=== PATIENT | male | born 1980 | race Hispanic/Latino ===

== ENCOUNTER 2022-10-16 09:40 | Emergency (ER) | payer SELFPAY ==
[2022-10-16] MEDS ORDERED: LIDOCAINE HCL JELLY 2% 6 ML SYRINGE TOP ONE (10:03)
[2022-10-16] MEDS ORDERED: TETANUS & DIPHTHERIA TOX,ADULT 0.5 ML VIAL ONE (10:03)
--- NOTE | 2022-10-16 10:18 | EDPHYS ---
Physician Documentation [facility] Name: Parker Hughes Age: 42 yrs Sex: Male : 1980 Arrival Date: 10/16/2022 Time: 09:40 Bed 20 Private MD: ED Physician Erin Lopez HPI: 10/16 10:15 This 42 yrs old Male presents to ER via Ambulatory with complaints of Wound kb Check - head. 10:15 The patient has a laceration related to: ceiling fan hit pt in the head occurred at home, and there are no complicating factors. The injury was accidental. The laceration(s) is(are) located on the left parietal area. Onset: The symptoms/episode began/occurred just prior to arrival. Associated signs and symptoms: The patient has no apparent associated signs or symptoms. The patient has not experienced similar symptoms in the past. The patient has not recently seen a physician. {Pt states he was trying to kill a song and hit his head on the ceiling fan causing laceration. Denies LOC, dizziness, headache. Historical: - Allergies: 09:56 No Known Allergies; ph - PMHx: 09:56 None; ph - Immunization history:: Adult Immunizations unknown. - Social history:: Smoking status: Patient denies any tobacco usage or history of. ROS: 10:14 Constitutional: Negative for fever, chills, and weight loss. kb 10:14 Skin: Positive for laceration(s), of the left parietal area. 10:14 All other systems are negative. Exam: 10:14 Constitutional: This is a well developed, well nourished patient who is awake, alert, kb and in no acute distress. ENT: Moist Mucous membranes Cardiovascular: Regular rate and rhythm with a normal S1 and S2. No gallops, murmurs, or rubs. No pulse deficits. Respiratory: Respirations even and unlabored. No increased work of breathing. Talking in full sentences MS/ Extremity: Pulses equal, no cyanosis. Neurovascular intact. Full, normal range of motion. Neuro: Awake and alert, GCS 15, oriented to person, place, time, and situation. Moves all extremities. Normal gait. 10:14 Skin: injury, laceration(s), the wound is approximately 3 cm(s), of the left parietal area, that can be described as clean, no foreign body, linear, without bleeding. Vital Signs: 09:55 BP 139 / 98; Pulse 87; Resp 18; Temp 98; Pulse Ox 99% on R/A; Weight 88.45 kg; Height 5 ph ft. 10 in. ; 09:55 Body Mass Index 27.98 (88.45 kg, 177.8 cm) ph Laceration: 10:22 Wound Repair of 3cm ( 1.2in ) subcutaneous laceration to left parietal area. Linear kb shaped.. Distal neuro/vascular/tendon intact. Anesthesia: Topical anesthetic administered with 1% lidocaine. Wound prep: Extensive cleansing, Wound irrigation. Skin closed with 3 1-0 [place] using staple gun. Patient tolerated well. MDM: 09:46 Patient medically screened. kb 10:15 Data reviewed: vital signs, nurses notes. kb 10:16 Differential diagnosis: superficial laceration, tendon injury, vascular injury, head kb injury. Historians other than the Patient: Spouse/Significant Other: significant other. Counseling: I had a detailed discussion with the patient and/or guardian regarding: the historical points, exam findings, and any diagnostic results supporting the discharge/admit diagnosis, the need for outpatient follow up, a family practitioner, to return to the emergency department if symptoms worsen or persist or if there are any questions or concerns that arise at home. 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 Lot #: [id number]. } Route: IM; Site: right deltoid; 10:29 Follow up: Response: No adverse reaction kc6 10:29 Drug: [place] PO 10 mg-325 mg 1 tabs Route: PO; kc6 Disposition Summary: 10/16/22 10:18 Discharge Ordered Location: Home kb Condition: Stable kb Diagnosis - Laceration without foreign body of scalp kb Followup: kb - With: Emergency Department - When: As needed - Reason: Worsening of condition Followup: kb - With: Private Physician - When: 2 - 3 days - Reason: Recheck today's complaints, Continuance of care, Re-evaluation by your physician Discharge Instructions: - Discharge Summary Sheet kb - Laceration Care, Adult, [id number] kb - Head Injury, Adult, [id number] kb Forms: - Medication Reconciliation Form kb - Thank You Letter kb - Antibiotic Education kb - Prescription Opioid Use kb Prescriptions: - Diclofenac Sodium 75 mg Oral tablet,delayed release (DR/EC) - take 1 tablet by ORAL route 2 times per day As needed; 30 tablet; Refills: 0, kb Product Selection Permitted Signatures: Charline Llamas, PRIYA-C Fatimah Mrain, RN RN Vanessa Agrawal RN RN kc6
--- NOTE | 2022-10-16 10:18 | ER ---
Nurse's Notes [facility] Name: Parker Hughes Age: 42 yrs Sex: Male : 1980 Arrival Date: 10/16/2022 Time: 09:40 Bed 20 Private MD: Diagnosis: Laceration without foreign body of scalp Presentation: 10/16 09:55 Chief complaint: Patient states: Was trying to kill a song and hit head on ceiling ph fan, laceration to L occipital area, no LOC, minimal bleeding. Coronavirus screen: Vaccine status: Patient reports receiving the 1st dose of the Covid vaccine. Ebola Screen: No symptoms or risks identified at this time. Initial Sepsis Screen: Does the patient meet any 2 criteria? No. Patient's initial sepsis screen is negative. Does the patient have a suspected source of infection? No. Patient's initial sepsis screen is negative. Risk Assessment: Do you want to hurt yourself or someone else? Patient reports no desire to harm self or others. Onset of symptoms was October 16, 2022. 09:55 Method Of Arrival: Ambulatory 09:55 Acuity: KRYSTA 4 ph Historical: - Allergies: 09:56 No Known Allergies; ph - PMHx: 09:56 None; ph - Immunization history:: Adult Immunizations unknown. - Social history:: Smoking status: Patient denies any tobacco usage or history of. Screenin:06 [facility] ED Fall Risk Assessment (Adult) History of falling in the last 3 months, kc6 including since admission No falls in past 3 months (0 pts) Confusion or Disorientation No (0 pts) Intoxicated or Sedated No (0 pts) Impaired Gait No (0 pts) Mobility Assist Device Used No (0 pt) Altered Elimination No (0 pt) Score/Fall Risk Level 0 - 2 = Low Risk Oriented to surroundings, Maintained a safe environment, Educated pt \T\ family on fall prevention, incl call for assistance when getting out of bed, Assessed \T\ reinforced patient's understanding of fall precautions, Hourly rounding (assess needs \T\ fall precautionary measures) done. Abuse screen: Denies threats or abuse. Denies injuries from another. Nutritional screening: No deficits noted. Tuberculosis screening: No symptoms or risk factors identified. Assessment: 10:11 General: Appears in no apparent distress. comfortable, Behavior is calm, cooperative, kc6 appropriate for age. Pain: Complains of pain in scalp. Neuro: Joaquin Agitation-Sedation Scale (RASS): 0 - Alert and Calm Level of Consciousness is awake, alert, obeys commands, Oriented to person, place, time, situation, Appropriate for age. Cardiovascular: Capillary refill < 3 seconds. Respiratory: Airway is patent Trachea midline Respiratory effort is even, unlabored, Respiratory pattern is regular, symmetrical. GI: No signs and/or symptoms were reported involving the gastrointestinal system. : No signs and/or symptoms were reported regarding the genitourinary system. EENT: No signs and/or symptoms were reported regarding the EENT system. Derm: Skin is pink, warm \T\ dry. Wound noted scalp. Musculoskeletal: No signs and/or symptoms reported regarding the musculoskeletal system. Circulation, motion, and sensation intact. Capillary refill < 3 seconds, Range of motion: intact in all extremities. Vital Signs: 09:55 BP 139 / 98; Pulse 87; Resp 18; Temp 98; Pulse Ox 99% on R/A; Weight 88.45 kg; Height 5 ph ft. 10 in. ; 09:55 Body Mass Index 27.98 (88.45 kg, 177.8 cm) ph ED Course: 09:45 Patient arrived in ED. am2 09:46 Charline Llamas FNP-C is [facility]. kb 09:46 Erin Lopez MD is Attending Physician. kb 09:54 Vanessa Agrawal, LILLI is Primary Nurse. kc6 09:56 Triage completed. ph 09:57 Arm band placed on Patient placed in an exam room, on a stretcher. ph 10:06 Patient has correct armband on for positive identification. Bed in low position. Call kc6 light in reach. Side rails up X 1. Adult w/ patient. 10:30 No provider procedures requiring assistance completed. Patient did not have IV access kc6 during this emergency room visit. 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 Exp: kc6 11/05/2023. Lot #: [id number]. } Route: IM; Site: right deltoid; 10:29 Follow up: Response: No adverse reaction kc6 10:29 Drug: [place] PO 10 mg-325 mg 1 tabs Route: PO; kc6 Medication: 10:30 VIS not applicable for this client. kc6 Outcome: 10:18 Discharge ordered by . kb 10:30 Discharged to home ambulatory, with significant other. kc6 10:30 Condition: stable 10:30 Discharge instructions given to patient, Instructed on discharge instructions, follow up and referral plans. medication usage, Demonstrated understanding of instructions, follow-up care, medications, Prescriptions given X 1. 10:30 Patient left the ED. kc6 Signatures: Charline Llamas, DRILL FOREMAN-C DRILL FOREMAN-Fatimah Forbes, RN RN Jennifer Mariee Kaitlyn, RN RN kc6
[2022-10-16 10:34] VITALS: BP 139/98; TEMP 98; O2SAT 99
[2022-10-16] MEDS ORDERED: HYDROCODONE/APAP 10/325 TAB ONE (10:34)
== END 2022-10-16 10:30 | disposition home or self-care (01) ==
LOC: ER 09:40
PROC: 0HQ0XZZ Repair Scalp Skin, External Approach (ICD-10-PCS; principal; 2022-10-16)
DX: S01.01XA Laceration without foreign body of scalp, initial encounter (principal); Z23 Encounter for immunization
CPT/HCPCS: 90714

== ENCOUNTER 2022-10-26 16:14 | Emergency (ER) | payer SELFPAY ==
--- NOTE | 2022-10-26 16:45 | ER ---
Nurse's Notes [facility] Name: Parker Hughes Age: 42 yrs Sex: Male : 1980 Arrival Date: 10/26/2022 Time: 16:14 Bed IW1 Private MD: Diagnosis: Encounter for removal of sutures-removal scalp rosa elena Presentation: 10/26 16:27 Coronavirus screen: At this time, the client does not indicate any symptoms associated iw with coronavirus-19. Ebola Screen: Patient negative for fever greater than or equal to 101.5 degrees Fahrenheit, and additional compatible Ebola Virus Disease symptoms Patient denies exposure to infectious person. Patient denies travel to an Ebola-affected area in the 21 days before illness onset. No symptoms or risks identified at this time. Initial Sepsis Screen: Does the patient meet any 2 criteria? No. Patient's initial sepsis screen is negative. Does the patient have a suspected source of infection? No. Patient's initial sepsis screen is negative. 16:28 Chief complaint: Chief complaint: Patient states: needs rosa elena removed from scalp. iw 16:28 Risk Assessment: Do you want to hurt yourself or someone else? Patient reports no iw desire to harm self or others. Onset of symptoms was October 16, 2022. 16:28 Method Of Arrival: Ambulatory iw 16:28 Acuity: KRYSTA 4 iw Historical: - Allergies: 16:29 No Known Allergies; iw Vital Signs: 16:28 BP 102 / 64; Pulse 80; Resp 18; Temp 98.6; Pulse Ox 97% on R/A; iw ED Course: 16:16 Patient arrived in ED. ts1 16:23 Adrian Castillo PA is PHCP. cp 16:23 Tru Valladares DO is Attending Physician. cp 16:29 Triage completed. iw 16:29 Arm band placed on. iw 16:42 Aniyah Krause RN is Primary Nurse. iw Administered Medications: No medications were administered Outcome: 16:45 Discharge ordered by MD. cp 16:51 Patient left the ED. iw Signatures: Aniyah Krause RN RN iw Adrian Castillo PA PA cp Simpson, Tanya, PAS PAS ts1 Corrections: (The following items were deleted from the chart) 16:29 16:28 Chief complaint: iw iw 16:29 16:28 Pulse 80bpm; Resp 18bpm; Pulse Ox 97% RA; Temp 98.6F; iw iw
--- NOTE | 2022-10-26 16:45 | EDPHYS ---
Physician Documentation [facility] Name: Parker Hughes Age: 42 yrs Sex: Male : 1980 Arrival Date: 10/26/2022 Time: 16:14 Bed IW1 Private MD: ED Physician Tru Valladares HPI: 10/26 16:33 This 42 yrs old Male presents to ER via Ambulatory with complaints of Wound cp Infection. 16:33 The patient has rosa elena on the scalp. cp 16:33 Previous treatment: The patient was initially treated on October 16, 2022, the care was cp rendered at [facility], Treatment type: The patient's original treatment included rosa elena. Sutures/rosa elena progress: The patient has no c/o's. The wound is well-healing with no redness, swelling, discharge, or dehiscence reported. 16:33 Patient presents to ED for suture removal with concern for infection. Seen by pcp and cp sent to ED for evaluation. Historical: - Allergies: 16:29 No Known Allergies; iw ROS: 16:35 Constitutional: Negative for body aches, chills, fever, poor PO intake. cp 16:35 Skin: Positive for history of scalp laceration. cp 16:35 All other systems are negative. Exam: 16:40 Constitutional: The patient appears in no acute distress, alert, awake, comfortable, cp non-toxic, well developed, well nourished. 16:40 Head/face: Noted is well-healed laceration with [address], mild swelling and cp tenderness to palpation, no drainage expressed. 16:40 Eyes: Periorbital structures: appear normal, Conjunctiva: normal, no exudate, no injection, Lids and lashes: appear normal, bilaterally. 16:40 ENT: External ear(s): are unremarkable, Nose: is normal, Mouth: Lips: moist, Oral mucosa: moist, Posterior pharynx: Airway: no evidence of obstruction, patent. 16:40 Neck: ROM/movement: is normal, is supple, without pain, no range of motions limitations. 16:40 Chest/axilla: Inspection: normal. 16:40 Cardiovascular: Rate: normal. 16:40 Respiratory: the patient does not display signs of respiratory distress, Respirations: normal, no use of accessory muscles, no retractions. 16:40 Neuro: Orientation: to person, place \T\ time. Mentation: is normal, Motor: moves all fours, strength is normal, Gait: is steady, at a normal pace, without difficulty. Vital Signs: 16:28 BP 102 / 64; Pulse 80; Resp 18; Temp 98.6; Pulse Ox 97% on R/A; iw Procedures: 16:43 Suture/Staple removal: Removed 3 rosa elena, from scalp, site appears well healed, dressed cp with Neosporin, Patient tolerated well. MDM: 16:45 Patient medically screened. cp 16:45 Data reviewed: vital signs, nurses notes. cp 16:45 Counseling: I had a detailed discussion with the patient and/or guardian regarding: the cp historical points, exam findings, and any diagnostic results supporting the discharge/admit diagnosis, to return to the emergency department if symptoms worsen or persist or if there are any questions or concerns that arise at home. Response to treatment: the patient's symptoms have markedly improved after treatment, and as a result, I will discharge patient. Administered Medications: No medications were administered Disposition: 17:41 Co-signature as Attending Physician, Tru GENAO was immediately available on-site ms3 in the Emergency Department for consultation in the care of the patient. Disposition Summary: 10/26/22 16:45 Discharge Ordered Location: Home cp Problem: new cp Symptoms: have improved cp Condition: Stable cp Diagnosis - Encounter for removal of sutures - removal scalp rosa elena cp Followup: cp - With: Emergency Department - When: As needed - Reason: Worsening of condition Discharge Instructions: - Discharge Summary Sheet cp - Suture Removal, Care After cp Forms: - Medication Reconciliation Form cp - Thank You Letter cp - Antibiotic Education cp - Prescription Opioid Use cp Prescriptions: - Cephalexin 500 mg Oral Capsule - take 1 capsule by ORAL route every 8 hours for 10 days; 30 capsule; Refills: 0, cp Product Selection Permitted Signatures: Aniyah Krause RN RN iw Adrian Castillo PA PA cp Sims, Marcus, DO DO ms3 Corrections: (The following items were deleted from the chart) 10/27 14:16 14:14 Patient presents to ED for suture removal with concern for infection. Seen by . cpcp
[2022-10-26 16:57] VITALS: BP 102/64; TEMP 98.6; O2SAT 97
== END 2022-10-26 16:51 | disposition home or self-care (01) ==
LOC: ER 16:14
DX: Z48.02 Encounter for removal of sutures (principal)
CPT/HCPCS: 99281